=== PATIENT | male | born 1930 | race Caucasian/White ===

== ENCOUNTER 2017-02-25 09:51 | Day surgery (SDC) | payer MEDICARE, OTHER ==
--- NOTE | ~2017-02-25 | OP ---
Record Of Operation [facility] [address] [place]. [address] NAME: MILLY PUENTE : 34 STATUS : REG [facility] [place] PAT#: [id number] AGE: 86 ADM/REG DATE : 02/25/17 MR#: [id number] REPORT SERV DATE: 02/25/17 DICTATED BY: MANINDER DOYLE II DATE: 02/25/17 REPORT STATUS : Draft TRANSCRIBED BY: MODL DATE: 02/25/17 DATE OF PROCEDURE: 02/25/2017 HEALTH AND WELLNESS ADVISOR: Chris Quintero. PREOPERATIVE DIAGNOSIS: Chronic renal failure. POSTOPERATIVE DIAGNOSIS: Chronic renal failure. PROCEDURE: Creation of right upper extremity brachiocephalic arteriovenous fistula. ANESTHESIA: Local with MAC with a scalene block. IV FLUIDS: 400 mL. ESTIMATED BLOOD LOSS: 10. FINDINGS: Brachial artery measured 4.8 mm, cephalic vein measured 4.2 mm. DETAILS OF PROCEDURE: The patient was taken to the operating room, placed in supine position on the operating room table. Right arm was prepped and draped. We mapped out the arm with ultrasound adequate till a vein and artery were identified. I made an incision just above the antecubital fossa. Mobilized the vein proximally and distally, ligated it, and then spatulated the free end and flushed it with heparin. It dilated nicely. I exposed the brachial artery. Placed vessel loops. Arteriotomy was made, and I then performed an end-to side anastomosis between the artery and the vein using running 6-0 Prolene. Prior to complete closure, we flushed and removed the clamps. There was a good thrill in the fistula. The anastomosis was hemostatic, and he maintained a pulse at the wrist. We thoroughly irrigated and closed with 3-0 Vicryl and closed the skin with Monocryl. At the end of the procedure, he is stable. He is currently on table awaking from sedation. THIERNO/JULIANNA Maninder Doyle II, M.D. / [id number] CC: Nina Wheeler II, III, D.O.
[~2017-02-25 09:51] MED LIST: AFRIN15 NAS; ALTACE10 MG PO; ATRONASAL3 NAS; CARDCD240 PO; CARDU4 PO; DEMA20 PO; FLOMAX4 PO; GLUCOTRO10 PO; GLUCXL2.5 PO; HYDRALAZINE100 MG PO; LANTUSCART SC; NASONEX NAS; RHINOCORT NASAL NAS; SODIUM BICARBONATE PO; VICKS SINEX12 HR NAS; ZOCOR40 PO; ZYRTEC ALLGY10 MG PO
[2017-02-25 11:37] LABS: CALCIUM, SERUM 8.5 MG/DL (8.5-10.4); CHLORIDE, SERUM 105 MMOL/L (96-112); CO2 (CARBON DIOXIDE) 24 MMOL/L (24-34); CREATININE 3.38 MG/DL (0.70-1.30); GFR AFRICAN AMERICAN 18 ML/MIN (>=60); GFR NON AFRICAN AMERICAN 16 ML/MIN (>=60); GLUCOSE, SERUM 165 MG/DL (60-99); POTASSIUM, SERUM 4.5 MMOL/L (3.5-5.3); SODIUM, SERUM 136 MMOL/L (135-148)
[2017-02-25 11:40] LABS: BUN (BLOOD UREA NITROGEN) 49 MG/DL (6-23)
== END 2017-02-25 15:29 | disposition home or self-care (01) ==
LOC: SDC 09:51
PROVIDERS: Surgery
PROC: 03170JD Bypass Right Brachial Artery to Upper Arm Vein with Synthetic Substitute, Open Approach (ICD-10-PCS; principal; 2017-02-25 11:45)
DX: E11.22 Type 2 diabetes mellitus with diabetic chronic kidney disease (principal); I12.9 Hypertensive chronic kidney disease with stage 1 through stage 4 chronic kidney disease, or unspecified chronic kidney disease; N18.9 Chronic kidney disease, unspecified; M19.90 Unspecified osteoarthritis, unspecified site; Z87.891 Personal history of nicotine dependence; Z79.84 Long term (current) use of oral hypoglycemic drugs; Z79.4 Long term (current) use of insulin; Z79.899 Other long term (current) drug therapy
CPT/HCPCS: 71020; 80048; 82962; 93005; J0690; J2250; J2795; J3010